=== PATIENT | male | born 1965 ===

== ENCOUNTER 2025-07-06 05:00 | Outpatient (RCR) | payer OTHER, SELFPAY | END 2025-08-04 23:59 | disposition home or self-care (01) | LOC: GPT 05:00 | PROVIDERS: Visit Provider Nurse Practitioner | DX: M75.101 Unspecified rotator cuff tear or rupture of right shoulder, not specified as traumatic (principal) | CPT/HCPCS: 97110; 97112; 97140; 97161; 97530 ==

== ENCOUNTER 2025-08-17 08:02 | Outpatient (RCR) | payer OTHER, SELFPAY | END 2025-09-04 23:59 | disposition home or self-care (01) | LOC: GPT 08:02 | PROVIDERS: Visit Provider Nurse Practitioner | DX: M75.101 Unspecified rotator cuff tear or rupture of right shoulder, not specified as traumatic (principal) | CPT/HCPCS: 97110; 97112; 97140 ==